=== PATIENT | female | born 1985 | race Two or more races ===

== ENCOUNTER 2018-12-06 15:50 | Emergency (ER) | payer MEDICAID ==
[~2018-12-06] VITALS: Ht 154.9 cm; Wt 93.4 kg
[2018-12-06 16:04] VITALS: BP 140/87
[2018-12-06 16:35] LABS: Urine Bacteria NONE SEEN /hpf (None Seen); Urine Blood Negative /uL (Negative); Urine Specific Gravity 1.025 (1.001-1.035); Urine WBC 4 /hpf (0 - 5)
== END 2018-12-06 17:27 | disposition home or self-care (01) ==
LOC: ER 15:50
DX: N76.0 Acute vaginitis (principal); N39.0 Urinary tract infection, site not specified
CPT/HCPCS: 81001; 81025

== ENCOUNTER 2022-02-09 01:02 | Emergency (ER) | payer MEDICAID ==
[~2022-02-09] VITALS: Ht 154.9 cm; Wt 95.2 kg
[2022-02-09] MEDS ORDERED: IBUPROFEN 600 MG TAB PO ONE (02:00)
[2022-02-09 03:53] VITALS: BP 135/73
== END 2022-02-09 04:05 | disposition home or self-care (01) ==
LOC: ER 01:02
DX: J06.9 Acute upper respiratory infection, unspecified (principal); Z20.822 Contact with and (suspected) exposure to COVID-19; Z90.49 Acquired absence of other specified parts of digestive tract
CPT/HCPCS: 36415; 87426; 87804

== ENCOUNTER 2023-01-05 10:57 | Emergency (ER) | payer MEDICAID ==
[~2023-01-05] VITALS: Ht 154.9 cm; Wt 96.4 kg
[2023-01-05 12:21] VITALS: BP 122/74; PULSE 98; RESP 16; TEMP 97.6; O2SAT 98
[2023-01-05] MEDS ORDERED: TRIA0.02 TOP (12:35)
[2023-01-05] MEDS ORDERED: METH4PAK PO (12:35)
== END 2023-01-05 12:40 | disposition home or self-care (01) ==
LOC: ER 10:57
DX: L25.9 Unspecified contact dermatitis, unspecified cause (principal); Z98.890 Other specified postprocedural states

== ENCOUNTER 2023-01-07 07:39 | Emergency (ER) | payer MEDICAID ==
[~2023-01-07] VITALS: Ht 154.9 cm; Wt 95.9 kg
[~2023-01-07 07:39] MED LIST: METH4PAK PO; TRIA0.02 TOP
[2023-01-07] MEDS ORDERED: TRIA0.1O EX (10:26)
[2023-01-07 10:35] VITALS: BP 128/67; PULSE 82; RESP 18; TEMP 98; O2SAT 96
== END 2023-01-07 10:39 | disposition home or self-care (01) ==
LOC: ER 07:39
DX: L23.9 Allergic contact dermatitis, unspecified cause (principal); Z90.49 Acquired absence of other specified parts of digestive tract

== ENCOUNTER 2024-10-04 18:14 | Emergency (ER) | payer BC, MEDICAID, OTHER ==
[~2024-10-04] VITALS: Ht 154.9 cm; Wt 94.0 kg
[~2024-10-04 18:14] MED LIST changes: +TRIA0.1O EX
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
[2024-10-04 20:02] VITALS: BP 109/82; TEMP 99.3
[2024-10-04] MEDS: IBUPROFEN 600 MG TAB PO ONE (20:20)
[2024-10-04] MEDS: HYDROcodone-ACET 5/325MG TAB PO ONE (20:21)
[2024-10-04 20:25] VITALS: PULSE 102; RESP 18; O2SAT 96
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
[2024-10-04] MEDS ORDERED: IBUP-1456 PO (22:06)
== END 2024-10-04 22:35 | disposition home or self-care (01) ==
LOC: ER 18:14
DX: S80.02XA Contusion of left knee, initial encounter (principal); S80.12XA Contusion of left lower leg, initial encounter; Z90.49 Acquired absence of other specified parts of digestive tract; Z98.890 Other specified postprocedural states; Z79.899 Other long term (current) drug therapy; V43.52XA Car driver injured in collision with other type car in traffic accident, initial encounter; Y93.89 Activity, other specified; Y92.89 Other specified places as the place of occurrence of the external cause; Y99.8 Other external cause status
CPT/HCPCS: 73562